=== PATIENT | male | born 1960 | race Caucasian/White ===

== ENCOUNTER 2023-11-10 09:10 | Outpatient (REF) | payer OTHER, SELFPAY ==
--- NOTE | ~2023-11-10 | XR_ITS ---
EXAMINATION: XR KNEE, RIGHT CLINICAL INFORMATION: Pain in right knee. COMPARISON: None available. TECHNIQUE: Three views of the right knee. FINDINGS: No significant joint effusion. Mild narrowing of the medial compartment. Tiny tricompartmental osteophytes. Deformity along the proximal aspect of the fibula, possibly related to prior trauma, developmental anomaly versus other etiology, but difficult to evaluate due to overlapping tibia. Correlation with clinical exam and dedicated views with attention to the fibula recommended. XR/XR knee RT 3V IMPRESSION: 1. Mild degenerative changes. 2. Deformity along the proximal aspect of the fibula, possibly related to prior trauma, developmental anomaly versus other etiology, but difficult to evaluate due to overlapping tibia. Correlation with clinical exam and dedicated views with attention to the fibula recommended.
== END 2023-11-10 09:11 | disposition home or self-care (01) ==
LOC: HO.HOSX 09:10
PROVIDERS: Visit Provider Orthopaedic Surgery
DX: M25.561 Pain in right knee (principal)
CPT/HCPCS: 73562

== ENCOUNTER 2023-11-10 13:57 | Outpatient (AMB) | payer OTHER, SELFPAY ==
--- NOTE | 2023-11-10 14:11 | A.OFFVIS_ITS ---
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 The patient did undergo left total knee replacement surgery several years ago. He reports minimal discomfort in his left knee. He describes his right knee pain as sharp in nature. His right knee pain has gotten worse over the last few years in spite of continued non operative treatments. He has had cortisone injections in the past which gave him minimal relief. He has not had a viscosupplementation injection for his left knee. Has done physical therapy which aggravated his pain. He has also tried Tylenol and anti-inflammatory medicines which gave him minimal relief. Allergies Penicillins Allergy (Verified 11/10/23 14:14) rash/swelling Medication List - Last Reconciled 11/10/23 by David May MD aspirin (Adult Low Dose Aspirin) 81 mg PO DAILY metoprolol succinate ER 100 mg PO DAILY pravastatin 40 mg PO DAILY [facility] Social History (Updated 11/10/23 @ 14:15 by Marino Dumont) Alcohol intake: current Alcohol intake frequency: holidays/special occasions only Patient Tobacco Use Status: Never used Tobacco Current occupational status: employed Current occupation: logistics Physical Exam Const Other: Well-nourished well-developed very friendly male awake alert and oriented x3 in no acute distress Extrem Other: Bilateral lower extremity examination shows good capillary refill, no skin lesions noted, normal sensation light touch Right knee examination shows a minimal effusion, palpable crepitus with range of motion, pain with range of motion, range of motion from -3 degrees to 115 degrees, no instability Results Reviewed Results Reviewed: X-rays of the patient's right knee show mild to moderate joint space narrowing, subchondral sclerosis, no acute bony abnormalities Assessment & Plan Assessment & Plan (1) Arthritis of right knee: Code(s): M17.11 - Unilateral primary osteoarthritis, right knee Category: Medical Plan Mr. Vasquez presents with right knee due to degenerative joint disease. I had a lengthy discussion with her regarding the treatment options. He wishes to hold off on surgery for as long as possible. I agree with this plan. He has not gotten good relief from cortisone injections in the past. Thus, I will see whether or not his insurance company will cover a viscosupplementation injection for his right knee. I will see him back once the injection is available. Feel free to call me at any time should questions regarding his orthopedic management arise. I spent 20 minutes in reviewing the patient's records and imaging studies, seeing the patient and documenting in the medical record. Orders: Orders XR knee RT 3V Today M25.561 - Pain in right knee Coding Level of Care Code New Pt Level 2 (40555) Diagnoses Arthritis of right knee M17.11
== END 2023-11-10 14:39 | disposition home or self-care (01) ==
LOC: HO.HOS 13:58
PROVIDERS: Visit Provider Orthopaedic Surgery
DX: M17.11 Unilateral primary osteoarthritis, right knee (principal)
CPT/HCPCS: 99203